=== PATIENT | female | born 1970 | race Caucasian/White ===

== ENCOUNTER 2022-02-04 22:26 | Emergency (ER) | payer BC, OTHER ==
[~2022-02-04] VITALS: Ht 154.9 cm; Wt 60.8 kg
[~2022-02-04 22:26] MED LIST: TAMS-11
[2022-02-04 23:00] VITALS: BP_SYST 157
--- NOTE | 2022-02-04 23:05 | NUR ---
PT HERE ACCOMPANIED BY HER C/O HTN AT HOME AND LT SIDED CHEST PAIN RADIATES TO LT ARM. PT STATED THAT STARTED THIS AFTER THAT HER SBP ON 150'S TOOK HER REGULAR BP MEDS AND CALLED TO HER PCP NAD ADVICE TO GO TO ER FOR EVALUATION. PER PT SHE IS IN A LOT OF STRESS A THIS TIME D/T FAMILY MATTERS. STATES SHE HAVING ANXIETY WELL. PMH:HTN,ANXIETY PT AAOX4 NO SOB NOTED AND NOT IN ANY DISTRESS AT THIS TIME.
[2022-02-04] MEDS ORDERED: ASPIRIN 81 MG TAB.CHEW PO ONE (23:30)
--- NOTE | 2022-02-04 23:31 | NUR ---
EKG DONE HANDED TO DR. KAY PT MEDICATED PER EMAR.
--- NOTE | 2022-02-05 01:17 | NUR ---
PT AAOX4 AT THIS TIME, NO DISTRESS AND DISCOMFORT NOTED
[2022-02-05 01:25] LABS: MONOCYTES # (AUTO) 0.3 K/uL (0.0-1.0)
[2022-02-05 01:33] LABS: EOSINOPHILS % (AUTO) 0.5 % (0.0-4.0); HEMATOCRIT 38.3 % (36-48); HEMOGLOBIN 12.7 g/dL (12.0-16.0); LYMPHOCYTES % (AUTO) 20.8 % (20.5-51.5); MEAN CORPUSCULAR HEMOGLOBIN 28 pg (27-31); MEAN CORPUSCULAR HGB CONC 33 % (32-36); MEAN CORPUSCULAR VOLUME 85 fL (79.0-98.0); MONOCYTES % (AUTO) 5.9 % (1.7-9.3); NEUTROPHILS # (AUTO) 3.6 K/uL (1.8-7.7); NEUTROPHILS % (AUTO) 71.8 % (40.0-70.0); PLATELET COUNT (AUTO) 349 K/uL (130-430); RED BLOOD CELL COUNT(AUTO) 4.52 MIL/uL (4.2-6.2)
[2022-02-05 01:34] LABS: ANION GAP 8 (5-15); CALCIUM 9.2 mg/dL (8.4-11.0); CHLORIDE 108 mmol/L (98-107); CREATININE 0.88 mg/dL (0.55-1.30); GLUCOSE 131 mg/dL (70-99); POTASSIUM 4.4 mmol/L (3.5-5.1); SODIUM SERUM 143 mmol/L (136-145); UREA NITROGEN, BLOOD 12 mg/dL (8-21)
--- NOTE | 2022-02-05 01:40 | NUR ---
INFORMED DR. KAY PER PT SHE FEELS BETTER AND WANTS TO GO HOME, PT PLACED ON [address] AT THIS TIME, ENDORSED TO CAIT PARIKH
[2022-02-05 01:48] LABS: ALANINE AMINOTRANSFERASE 36 U/L (12-78); ASPARTATE AMINOTRANSFERASE 32 U/L (10-37); TOTAL BILIRUBIN 0.5 mg/dL (0.0-1.0)
[2022-02-05 01:52] LABS: GFR AFRICAN AMERICAN 87 mL/min (>90)
--- NOTE | 2022-02-05 01:55 | NUR ---
PT STATES THAT SHE FEELS BETTER AND WANTS TO GO HOME AND REST.
--- NOTE | 2022-02-05 02:10 | NUR ---
Patient to ER [address] [facility] for evaluation. Side rails up. Report given to Radha PARIKH.
--- NOTE | 2022-02-05 02:11 | NUR ---
0210- PT WANTS TO [facility]OHOME. 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 PENDING SIGING FOR LWBS. PT ARGUING ABOUT WAITING IN THE ER FOR SO LONG TONIGHT. PT APPEARS ANXIOUS
--- NOTE | 2022-02-05 02:15 | NUR ---
PT RETURN AFTER STATES THAT SHE WILL WAIT TO SEE ERMD AT THIS TIME
--- NOTE | 2022-02-05 02:24 | NUR ---
NERISSA Quiroz examining patient in the [address].
[2022-02-05 03:00] VITALS: BP_SYST 153
--- NOTE | 2022-02-05 03:00 | NUR ---
Patient given written and verbal discharge instructions and verbalizes understanding. ER MD discussed with patient the results and treatment provided. Patient in stable condition. ID arm band removed. no Rx of given. Patient educated on pain management and to follow up with PMD. Pain Scale 0/10. Opportunity for questions provided and answered. Medication side effect fact sheet provided.
== END 2022-02-05 03:00 | disposition home or self-care (01) ==
LOC: SED 22:26
DX: M94.0 Chondrocostal junction syndrome [Tietze] (principal); I10 Essential (primary) hypertension; F41.9 Anxiety disorder, unspecified; Z79.899 Other long term (current) drug therapy
CPT/HCPCS: 36415; 71045; 80053; 83880; 84484; 85025; 93005; 99285